=== PATIENT | female | born 1975 | race Caucasian/White ===

== ENCOUNTER → 2021-01-11 | Day surgery (SDC) | payer OTHER ==
[~2021-01-11] VITALS: Ht 160 cm; Wt 68.0 kg
[~2021-01-11] MED LIST: ATORVASTATIN CA20 MG PO; CEFDINIR300 M1 PO; EUTHYROX75 MCG PO
[2021-01-11 10:02] LABS: HCG (URINE) SCREEN NEGATIVE (NEGATIVE)
== END | disposition home or self-care (01) ==
LOC: FAS 09:18
PROVIDERS: Anesthesiology
DX: Z12.11 Encounter for screening for malignant neoplasm of colon (principal); D12.4 Benign neoplasm of descending colon; A63.0 Anogenital (venereal) warts; N94.6 Dysmenorrhea, unspecified; E78.5 Hyperlipidemia, unspecified; F41.9 Anxiety disorder, unspecified; N92.1 Excessive and frequent menstruation with irregular cycle; J30.9 Allergic rhinitis, unspecified; E03.9 Hypothyroidism, unspecified; G43.909 Migraine, unspecified, not intractable, without status migrainosus; E66.3 Overweight; F17.290 Nicotine dependence, other tobacco product, uncomplicated; Z68.29 Body mass index [BMI] 29.0-29.9, adult; Z91.012 Allergy to eggs; Z98.51 Tubal ligation status
CPT/HCPCS: 84703; J2250; J2704; J7120